=== PATIENT | female | born 1945 | race Caucasian/White ===

== ENCOUNTER → 2022-01-16 11:22 | Outpatient (CLI) | payer MEDICARE, OTHER, SELFPAY ==
--- NOTE | 2022-01-16 11:24 | DI.RAD.S_ITS ---
PROCEDURE: XR KNEE RT 3V INDICATIONS: painful ambulation TECHNIQUE: 3 views of the knee were acquired. COMPARISON: None. FINDINGS: Bones: No fractures or dislocations. No suspicious bony lesions. There is mild femorotibial compartment narrowing. Soft tissues: No joint effusion. No suspicious soft tissue calcifications. IMPRESSION: Mild degenerative change. No acute radiographic findings. Dictated by: Samantha Brooks M.D. on 01/16/2022 at 11:45 Approved by: Samantha Brooks M.D. on 01/16/2022 at 11:45
== END ==
PROVIDERS: Referring Provider Nurse Practitioner Family; Visit Provider Nurse Practitioner Family
DX: M25.561 Pain in right knee (principal); R26.2 Difficulty in walking, not elsewhere classified
CPT/HCPCS: 73562

== ENCOUNTER → 2022-07-10 12:48 | Outpatient (CLI) | payer MEDICARE, OTHER, SELFPAY ==
--- NOTE | 2022-07-10 | DI.CT.S_ITS ---
PROCEDURE: CT LE LT W CON INDICATIONS: Displaced trimalleolar fracture of left lower leg TECHNIQUE: Noncontrast 3-mm axial sections acquired from the distal tibial shaft to the talar dome, with coronal and sagittal reformats.. COMPARISON: [facility] Outside Film, CR, XR ANKLE 3+ VIEWS LEFT, 07/03/2022, 10:21. FINDINGS: Image quality: Excellent. Bones: Comminuted fractures are seen at the distal tibia and fibula. There is an oblique fracture of the distal fibula extending of the mortise joint. Distal fracture fragment is displaced posteriorly by approximately 2 mm. A small comminuted fragment is seen along the distal lateral fracture line. Posterior malleolar fracture is seen extending into posterior coarse joint with approximately 2 mm step-off at the articular surface. The fracture is mildly comminuted. Oblique fracture is seen involving the medial malleolus, which does not appear significantly displaced. No step-off is seen at the medial articular surface. A few small tiny comminuted fracture fragments are seen along the medial aspect of the tibial metaphysis that are mildly displaced. No widening of the medial joint space is seen. Soft tissues: Small mortise joint effusion. Nonspecific soft tissue edema is seen surrounding the ankle. The articular cartilages, ligaments, and tendons are not well evaluated with standard CT, but no definite tendon entrapment is seen. The musculature of the lower leg and foot is normal in bulk. IMPRESSION: Minimally displaced intra-articular trimalleolar fractures described in the body of the report. There is up to 2 mm step-off at the posterior and lateral mortise joint articular surface. Approved by: Lamonte Ray M.D. on 07/10/2022 at 14:19
== END ==
PROVIDERS: PCP Internal Medicine; Referring Provider Orthopaedic Surgery; Visit Provider Orthopaedic Surgery
DX: S82.852A Displaced trimalleolar fracture of left lower leg, initial encounter for closed fracture (principal); X58.XXXA Exposure to other specified factors, initial encounter
CPT/HCPCS: 73700

== ENCOUNTER → 2022-07-14 13:05 | Outpatient (CLI) | payer MEDICARE, SELFPAY ==
[2022-07-14 13:48] LABS: COVID19 -Nasal RAPID Negative (Negative)
== END ==
PROVIDERS: PCP Internal Medicine; Referring Provider Orthopaedic Surgery Foot and Ankle Surgery; Visit Provider Orthopaedic Surgery Foot and Ankle Surgery
DX: Z20.822 Contact with and (suspected) exposure to COVID-19 (principal)
CPT/HCPCS: 87635; C9803

== ENCOUNTER 2022-07-17 09:23 | Day surgery (SDC) | payer MEDICARE, SELFPAY ==
[2022-07-14 10:39] VITALS: BMI 22.8
[2022-07-17] VITALS (7 sets, daily range): BP systolic 124–138; BP diastolic 69–79; PULSE 65–95; RESP 12–20; TEMP 36.2–36.8; O2SAT 92–98; BMI 22.8
--- NOTE | 2022-07-17 | DI.RAD.S_ITS ---
PROCEDURE: XR ANKLE LT MIN 3V INDICATIONS: ORIF TECHNIQUE: 5 intraoperative fluoroscopic views of the ankle were acquired. COMPARISON: None. FINDINGS: Intraoperative fluoroscopic images shows internal fixation of distal fibular shaft/lateral malleolus and posterior malleolus with surgical plate and screws in place. Ankle alignment is anatomic. IMPRESSION: Fluoro guidance was provided intraoperatively for ORIF of left ankle. Dictated by: Abimael Yao M.D. on 07/17/2022 at 16:34 Approved by: Abimael Yao M.D. on 07/17/2022 at 16:36
[2022-07-17] MEDS: LACTATED RINGERS 1,000 ML 42 ML IV (09:54)
--- NOTE | 2022-07-17 10:48 | PM.PREOP ---
Pre-operative Note COVID-19 COVID-19 status: Negative Interval Note History & Physical reviewed/Exam performed by Physician: Yes Changes to H&P: No
--- NOTE | 2022-07-17 11:31 | SUR.PREOP ---
Block start time [1110 ] . Monitoring initiated and maintained throughout procedure. Oxygen and medications given per anesthesiologist instructions. Patient remained stable throughout procedure, no adverse reactions noted. Block end time [].
--- NOTE | 2022-07-17 11:31 | SUR.PREOP ---
Block start time [1110] . Monitoring initiated and maintained throughout procedure. Oxygen and medications given per anesthesiologist instructions. Patient remained stable throughout procedure, no adverse reactions noted. Block end time [1129).
[2022-07-17] MEDS: CEFAZOLIN 2 GM/100 ML PREMIX 100 ML IV (11:37)
--- NOTE | 2022-07-17 11:59 | SUR.OPER ---
Supine on padded OR bed, head on pillow, arms secured on padded arm boards at <90 degrees abduction, legs uncrossed, safety belt at waist, tape over blanket over lower right leg, gel bump under left hip, left leg draped free with blankets under left calf
[2022-07-17] MEDS: BUPIVACAINE 0.5% W/ EPI (PF) 30 ML VIAL INJ (12:09)
--- NOTE | 2022-07-17 14:02 | P.OP_ITS ---
Operative Date/Time/Diagnoses Date of procedure: 07/17/22 Time of procedure: 14:02 Pre-op diagnosis: Trimalleolar ankle fracture left Syndesmotic disruption chaput fracture distal tibia Post-op diagnosis: same Procedure & Clinicians Procedure: 1. Open reduction internal fixation left trimalleolar ankle fracture with fixation posterior malleolus CPT code 98045 left 2. Fixation syndesmosis ankle CPT code 93666 Same procedure as scheduled: Yes Indications: Patient is a 77-year-old female sustained unstable ankle fracture while helping neighbors out and fell down an icy heal. She had a hyper plantar flexion type mechanism. She is osteopenia. She is otherwise quite active and runs and walks half marathons. She is an unstable ankle fracture. CT scan reveal a trimalleolar ankle fracture with small anterior Chaput she had medial clear space widening. She was indicated for open reduction internal fixation for left ankle fracture. The risks and benefits of the procedure have been discussed with the patient and given the opportunity to ask questions. The risks of surgery include but are not limited to infection, malunion, nonunion, persistence of pain, damage to nerves and blood vessels, posttraumatic arthritis, DVT, PE, cardiopulmonary complications and . The patient expressed a thorough understanding of the risks and benefits of surgery and has elected to proceed. Consent was signed. During the operation, the services of a physician rn medical surgical were medically indicated and necessary to provide the exposure of the operative site for the surgical procedure and to maintain the limb in a proper position to carry out the operation safely and efficiently. Without a qualified assistant professor of education being present this would extended the operative procedure and made the procedure technically more difficult to perform. Surgeon: Ginny Gil Tune Up Mechanic: Luciana Serrano Anesthesia Type: General, Peripheral nerve block and Local Operative Notes Findings: Minimally displaced posterior malleolus fracture that stretched all the way along the posterior rim of the tibia and exited out the medial malleolus at the groove for the posterior tibialis tendon, there is a small amount of combination removed and this was reduced and buttressed with a 4 hole 1/3 tubular plate in an antiglide fashion. Short oblique distal fibula fracture at the level of the syndesmosis. This was exposed and reduced stabilized with a 5 hole 1/3 tubular plate with locking screws distally and nonlocking screws proximally. Additionally a fully-threaded lag screw was placed as an inter frag lag screw outside of the plate. There is a small anterior Chaput distal tibia fracture fracture itself was too small for fixation small area of comminution was excised and the AITFL was repaired using 2. FiberWire. Following fixation ankle was taken through range of motion and stressed in external rotation. Syndesmosis was stable mortise was symmetric. Closure Type: primary Specimen(s): none sent Prosthetic devices, grafts, tissues, transplants, or devices: Fibula: Arthrex 1/3 tubular plate (5 hole) 3.5 locking screws distally and cortical screws proximally Tibia: Arthrex 1/3 tubular plate (4 hole) 3.5 cortical screws Estimated Blood Loss (mL): 20 Blood products transfused: none Tourniquet time (min): 60 Procedure in detail: Patient was seen in the preoperative area the site of surgery marked informed consent confirmed. The patient was brought back to the operating room by the anesthesia team. A preoperative block for postoperative pain control was placed by the anesthesiologist. Once in the OR the patient was positioned in the supine position. All bony prominences were well padded. A well-padded thigh tourniquet was placed. An SCD was on the contralateral lower extremity. The operative extremity was prepped and draped in the standard sterile fashion. A formal time-out procedure was performed confirming the patient's side and site of surgery administration of appropriate preoperative antibiotics. Implants were in the room accounted for. Surgical incisions were marked out on the leg. The Esmarch was used for exsanguination the tourniquet raised on the thigh to 250 mmHg. Medial malleolus and posterior malleolus fixation: Posterior medial incision was made just off the tibia behind the medial malleolus this extended for approximately 6 cm. This was taken down through the skin and subcutaneous tissue. Sheath for the posterior tibialis tendon was then entered. Posterior tibialis tendon was inspected was intact. This was mobilized both posterior and anterior to get exposure to the medial malleolus part of the posterior fracture that exited out the posterior tibialis tendon groove. Small amount of comminution was removed. And then the tibialis anterior tendon was retracted anteriorly and the interval between the posterior tibialis tendon and FDL was explored to allow exposure to the back of the tibia and the posterior malleolus fracture. This was minimally displaced. Rosamond elevator was used to help expose and reduce the posterior part of the fracture. Once this was positioned a 4 hole 1/3 tubular plate from the Arthrex set was placed on the posterior tibia to buttress the posterior and posterior medial malleolus fractures. This was secured with BB tacks and then a cortical screw was placed at the apex for an antiglide plate. Next additional proximal cortical screws were placed. Intraoperative fluoroscopy confirmed anatomic alignment of the posterior and medial malleolus of fractures and appropriate hardware placement. Attention was then turned to the fibula fracture. Separate lateral exposure was performed to the fibula down through the skin and subcutaneous tissue to the level of the Mar B distal fibula fracture. Fracture was a short oblique fracture. This was exposed and reduced with a periarticular reduction clamps restoring length and alignment. This was then pinned in place to hold the reduction. A inter frag lag screw, 3 5 was then placed and this was followed by a posterolateral placed 5 hole 1/3 tubular plate from the Arthrex set in an antiglide fashion. Locking screws were used distally to reduce prominence . Attention was then turned anterior to the Chaput and syndesmotic disruption. Guaman fracture representing AITFL disruption. This was too small to hold a screw so the fragment was removed. There was enough AITFL remaining to over-sew back through periosteum and a drill hole through the AI TFL using the 2. FiberWire this was secured. Once this was complete the syndesmosis was reduced and stable in combination with the anterior fixation in the posterior fracture fixation methods. This was stable to external rotation stress. The visualized parts of the talus dome were intact. Final intraoperative x-rays AP, mortise, lateral and stress x-rays were obtained confirming anatomic alignment and appropriate hardware placement. This point tourniquet was released hemostasis was achieved. The wounds were irrigated. Deep tissue was closed with 2-0 Vicryl suture. Care was taken to close the sheath around the posterior tibialis tendon and this glide smoothly. 4-0 Monocryl was used subcutaneously followed by 3-0 nylon suture. Additional local anesthetic was administered. The patient was placed into a sterile dressing with Xeroform gauze Webril bulky Estrella cotton and a stirrup and posterior U splint. Drapes removed. The patient was woken from anesthesia taken to recovery room in good condition. There no immediate complications from this procedure. All counts were correct. Complications: none Post-operative Condition: stable Disposition: PACU Plan for aftercare: Nonweightbearing or touchdown just for balance. Elevate above the heart level as much as possible for the next few weeks until follow-up. Will be nonweightbearing for about 6 weeks postoperatively. Start aspirin postoperative day 1 for DVT prophylaxis. Keep splint clean dry and intact. At 1st postop appointment patient will bring her boot from home she will go from the splint into the boot start gentle dorsiflexion plantar flexion range of motion but remain nonweightbearing for 6 weeks.
== END 2022-07-17 15:15 | disposition home or self-care (01) ==
PROVIDERS: PCP Internal Medicine; Referring Provider Orthopaedic Surgery Foot and Ankle Surgery; Visit Provider Orthopaedic Surgery Foot and Ankle Surgery
PROC: (CPT 27823; principal; 2022-07-17 11:15)
DX: S82.852A Displaced trimalleolar fracture of left lower leg, initial encounter for closed fracture (principal); S93.432A Sprain of tibiofibular ligament of left ankle, initial encounter; G89.18 Other acute postprocedural pain; W00.0XXA Fall on same level due to ice and snow, initial encounter; M85.89 Other specified disorders of bone density and structure, multiple sites
CPT/HCPCS: 27823; 27829; 64450; 73610; 76000; C1713; J0690; J1100; J2250; J2405; J2704; J3010

== ENCOUNTER → 2023-04-30 09:54 | Outpatient (CLI) | payer MEDICARE, SELFPAY ==
--- NOTE | 2023-04-30 | DI.MG.S_ITS ---
BILATERAL DIGITAL SCREENING MAMMOGRAM 3D/2D WITH CAD: 04/30/2023 CLINICAL: Routine screening. Family history of breast cancer. Comparison is made to exams dated: 04/28/2022 mammogram, 04/22/2021 mammogram, and 04/16/2020 mammogram - Outside facility. There are scattered areas of fibroglandular density in both breasts (category b / 25%-50% glandular tissue). Current study was also evaluated with a Computer Aided Detection (CAD) system. There are benign vascular calcifications in both breasts. No significant masses, calcifications, or other findings are seen in either breast. There has been no significant interval change. IMPRESSION: BENIGN There is no mammographic evidence of malignancy. A 1 year screening mammogram is recommended. Based on the Tyrer Cuzick model (a risk assessment model) the patient's lifetime risk is 4.8% and her 10 year risk is 0.0%. According to the ACR, ACS, and NCCN guidelines, an annual breast MRI exam along with mammogram is recommended if the patient's lifetime risk is 20% or greater. This exam was interpreted at Station ID: [id number]. NOTE: For mammograms, a report in lay terms will be sent to the patient. Approximately 15% of breast malignancies will not be visualized mammographically. In the management of a palpable breast mass, a negative mammogram must not discourage biopsy of a clinically suspicious lesion. Electronically Signed By: Paul gomez/ifrah:04/30/2023 14:14:45 letter sent: Normal Exam ACR BI-RADS Category 2: Benign Finding(s) [id number]
== END ==
PROVIDERS: PCP Internal Medicine; Referring Provider Internal Medicine; Visit Provider Internal Medicine
DX: Z12.31 Encounter for screening mammogram for malignant neoplasm of breast (principal); Z80.3 Family history of malignant neoplasm of breast
CPT/HCPCS: 77063; 77067

== ENCOUNTER → 2023-05-27 | Outpatient (CLI) | payer MEDICARE, SELFPAY ==
--- NOTE | 2023-05-27 | DI.RAD.S_ITS ---
Bone Density Report Name: KATE RAMIREZ Age: 78 Sex: Female Ethnicity: White Date of : 1945 Indication: postmenopausal; screening for osteoporosis; Referring Provider: ELMIRA HENLEY Study: Bone densitometry was performed. Exam Date: May 27, 2023 Accession number: [id number] Bone Density: Region BMD T-score Z-score Classification AP Spine(L1-L4) 0.631 -3.8 -1.1 Osteoporosis Femoral Neck (Left) 0.522 -2.9 -0.6 Osteoporosis Total Hip (Left) 0.660 -2.3 -0.2 Osteopenia Femoral Neck (Right) 0.552 -2.7 -0.4 Osteoporosis Total Hip (Right) 0.718 -1.8 0.2 Osteopenia Total Hip Mean 0.689 -2.1 0.0 Osteopenia World Health Organization criteria for BMD impression classify patients as: Normal (T-score at or above -1.0), Osteopenia (T-score between -1.0 and -2.5), or Osteoporosis (T-score at or below -2.5). 10-year Fracture Risk: FRAX not reported because: Some T-score for Spine Total or Hip Total or Femoral Neck at or below -2.5 Treated for osteoporosis Impression: The patient has osteoporosis, based on the Total Spine T-score. Discussion: It is important to ask patients whether they are taking their medications and to encourage continued and appropriate compliance with their osteoporosis therapies to reduce fracture risk. It is also important to review their risk factors and encourage appropriate calcium and vitamin D intakes, exercise, fall prevention and other lifestyle measures. Follow-Up: Consider a repeat BMD and Vertebral Fracture Assessment (VFA) exam in 2 years or sooner if medically necessary, to reassess this patient's status. Reported by: [facility] BETZY DAVIDSON M.D. on 05/27/2023 2:42:00 PM.
== END ==
LOC: RAD 14:07
PROVIDERS: PCP Internal Medicine; Referring Provider Internal Medicine; Visit Provider Internal Medicine
DX: M81.0 Age-related osteoporosis without current pathological fracture (principal)
CPT/HCPCS: 77080

== ENCOUNTER → 2024-05-16 13:53 | Outpatient (CLI) | payer MEDICARE, SELFPAY ==
--- NOTE | 2024-05-16 13:55 | DI.MG.S_ITS ---
BILATERAL DIGITAL SCREENING MAMMOGRAM 3D/2D WITH CAD: 05/16/2024 CLINICAL: Routine screening. Family history of breast cancer. Comparison is made to exams dated: 04/30/2023 mammogram - [facility], 04/28/2022 mammogram, and 04/22/2021 mammogram - Outside facility. There are scattered areas of fibroglandular density (category b / 25%-50% glandular tissue). Current study was also evaluated with a Computer Aided Detection (CAD) system. There are benign vascular calcifications in both breasts. No significant masses, calcifications, or other findings are seen in either breast. There has been no significant interval change. IMPRESSION: BENIGN There is no mammographic evidence of malignancy. A 1 year screening mammogram is recommended. Based on the Tyrer Cuzick model (a risk assessment model) the patient's lifetime risk is 1.9% and her 10 year risk is 0.0%. According to the ACR, ACS, and NCCN guidelines, an annual breast MRI exam along with mammogram is recommended if the patient's lifetime risk is 20% or greater. This exam was interpreted at Station ID: [id number]. NOTE: For mammograms, a report in lay terms will be sent to the patient. Approximately 15% of breast malignancies will not be visualized mammographically. In the management of a palpable breast mass, a negative mammogram must not discourage biopsy of a clinically suspicious lesion. Electronically Signed By: Paul gomez/ifrah:05/16/2024 17:07:05 letter sent: Normal Exam ACR BI-RADS Category 2: Benign
== END ==
LOC: MAMMO 13:53
PROVIDERS: PCP Internal Medicine; Referring Provider Internal Medicine; Visit Provider Internal Medicine
DX: Z12.31 Encounter for screening mammogram for malignant neoplasm of breast (principal); Z80.3 Family history of malignant neoplasm of breast
CPT/HCPCS: 77063; 77067

== ENCOUNTER → 2025-06-13 12:17 | Outpatient (CLI) | payer MEDICARE, SELFPAY ==
--- NOTE | 2025-06-13 12:20 | DI.RAD.S_ITS ---
PROCEDURE: XR DEXA AXIAL SKELETON INDICATIONS: Screening Mammogram/Osteoporosis Screening COMPARISON: [facility], , XR DEXA AXIAL SKELETON, 05/27/2023, 14:27. FINDINGS: Lumbar Spine: Bone mineral density 0.630 g/cm2, T score -3.8, unchanged. Left Femoral Neck: Bone mineral density 0.512 g/cm2, T score -3. Left Hip: Bone mineral density 0.682 g/cm2, T score -2.1, previously -2.3. Fracture Risk Calculation (when applicable): Not reported due to osteoporosis diagnosis. (T score greater or equal to -1.0 to: NORMAL) (T score from -1.1 to -2.4: OSTEOPENIA) (T score less than or equal to -2.5: OSTEOPOROSIS) IMPRESSION: Osteoporosis. Similar T-scores. Follow-up guidelines as follows: Osteoporosis: Consider a repeat DEXA and Vertebral Fracture Assessment (VFA) exam in 2 years or sooner if medically necessary, to reassess this patient's status. Osteopenia: Consider a repeat DEXA in 2-3 years to reassess this patient's status, or if there is a new clinical indication. Normal: Consider a repeat DEXA in 5 years or sooner, or if there is a new clinical indication. All treatment decisions require clinical judgment and consideration of individual patient factors, including patient preferences, comorbidities, previous drug use, risk factors not captured in the FRAX model (e.g., frailty, falls, vitamin D deficiency, increased bone turnover, interval significant decline in bone density ) and possible under- or over-estimation of fracture risk by FRAX. In addition, the NOF Guide recommends that FDA-approved medical therapies be considered in postmenopausal women and men age >= 50 years with a: * Hip or vertebral (clinical or morphometric) fracture * T-score of <=-2.5 at the spine or hip * Ten-year fracture probability by FRAX of >= 3% for hip fracture or >=20% for major osteoporotic fracture. Dictated by: Jv Marie M.D. on 06/14/2025 at 8:50 Approved by: Jv Marie M.D. on 06/14/2025 at 8:52
--- NOTE | 2025-06-13 12:20 | DI.MG.S_ITS ---
MM screening mammo BI: 06/13/2025. BI-RADS: 1 CLINICAL: 80-year old female for bilateral screening mammogram. Tyrer-Cuzick lifetime risk of 0.5%. PRIOR EXAMS 05/16/2024, 04/30/2023, outside films 04/28/2022, 04/22/2021. MAMMOGRAPHY TECHNIQUE: 2D and 3D (tomosynthesis) digital mammographic views obtained, with additional images as needed for full coverage. Current study was also evaluated with a Computer Aided Detection (CAD) system. DENSITY B. There are scattered areas of fibroglandular density. MAMMOGRAPHY FINDINGS Bilateral: No suspicious mass, asymmetry, microcalcification, or other abnormality seen. IMPRESSION: * No evidence of malignancy. RECOMMENDATIONS Bilateral * Annual screening mammography. OVERALL ASSESSMENT CATEGORY BI-RADS-1: Negative. The [employer] recommends annual screening mammography beginning at age 40 for women with average risk of breast cancer. ELECTRONICALLY SIGNED: Hernán Patel M.D. on 06/15/2025 at 11:27:20 PM PT Interpreting Station ID: [id number]
== END ==
LOC: RAD 12:19
PROVIDERS: PCP Nurse Practitioner Primary Care; Referring Provider Nurse Practitioner Primary Care; Visit Provider Nurse Practitioner Primary Care
DX: Z12.31 Encounter for screening mammogram for malignant neoplasm of breast (principal); M81.0 Age-related osteoporosis without current pathological fracture; Z78.0 Asymptomatic menopausal state
CPT/HCPCS: 77063; 77067; 77080